=== PATIENT | male | born 1980 | race Caucasian/White ===

== ENCOUNTER 2024-04-10 18:02 | Observation (INO) ==
--- NOTE | 2024-04-10 18:13 | Emergency Department Note ---
Impression & Plan Anaphylaxis, Urticaria ED Provider Note Provider: Young Ewing MD DATE OF SERVICE: 04/10/2024 CHIEF COMPLAINT: Allergic reaction HISTORY OF PRESENT ILLNESS: Patient is a 43-year-old gentleman approximately an hour prior to arrival stung once he believes by a bee. Used an Adalberto epinephrine autoinjector as well as 50 mg of Benadryl EMS activated. Received 0.3 mg IM epinephrine for EMS was 105 mg of Solu-Medrol and DuoNeb. Contact manage the patient was still having significant hive reaction and blood pressures in the 90s systolic but not tachycardic. Still significantly wheezy by report. Given additional IV fluid, small mount of IV Benadryl, and a second 0.3 IM dose of epinephrine and route. Upon arrival patient with extensive rash with stating improved pruritus. States he is breathing bit better but had some discomfort and pressure to the lower chest with reaction that is moderated. He is feeling better compared to previous. Got stung on the back area with something he thinks it might of been a bee but is unsure. Has been stung before without issues. No known allergic reactions. Denies other known exposures. Denies significant chest pain right now or difficulty breathing. States his girlfriend who he is visiting her family in town for has more of his medications but states he does have some medical history. Does report blood pressure issues in the past. Is visiting from [place]. He is finishing a DuoNeb upon arrival. PAST MEDICAL HISTORY: As noted above MEDICATIONS: Reviewed with patient and girlfriend. Includes baby aspirin, lisinopril, metoprolol, Jardiance, metformin, as well as vitamins SOCIAL HISTORY: Medical marijuana usage, non-smoker of tobacco PHYSICAL EXAM: GENERAL: alert and oriented in no acute distress on stretcher, tolerating his secretions Head: normocephalic and atraumatic with some blotchy rash and hives across the face. EYES: No injection, discharge or icterus. EOMI. NECK: Trachea midline. Supple. ENT: Mucous membranes pink and moist. Pharynx without erythema or exudate. No lingual swelling appreciable or significant tongue elevation. LUNGS: Airway patent. No retractions. Breath sounds clear with good air entry bilaterally. No stridor, no increased work of breathing HEART: Regular rate and rhythm. No chest wall tenderness ABDOMEN: Soft and non-tender, without guarding or rebound. SKIN: Acyanotic, warm, dry, with extensive [place] area/hives mild pruritus greater on the back and trunk than extremities EXTREMITIES: Without swelling, tenderness or deformity NEUROLOGICAL: No focal deficits. No aphasia. No facial droop or slurred speech. Normal strength and tone in the extremities. Sensation to gross touch normal. Ambulatory. EK bpm normal sinus rhythm. No PVC or PAC. No acute ST segment elevation or depression with a QTc of 428. CONTINUOUS CARDIAC MONITORING: was ordered and showed a heart rate of 70s to 80s bpm in normal sinus rhythm Patient's laboratory studies and imaging reviewed. Differential includes Allergic reaction, anaphylaxis, urticaria, Stoner-Olayinka syndrome, toxic epidermal necrolysis, erythema multiforme, contact dermatitis, cellulitis, as well as other pathologies. IMPRESSION/MEDICAL DECISION MAKING: Fairly severe anaphylaxis allergic reaction event received Adalberto epinephrine dose as well as 2 IM 0.3 mg epinephrine doses. Received Benadryl and Solu- Medrol as well as DuoNeb prior to arrival. Finished a liter of fluid here. Is having improvement upon arrival still fairly significant hives/acute care area. Not tachycardic or hypotensive here. Will monitor for any rebound but has required multiple doses of epinephrine already for the severity of his reaction. Seems like an insect or bee sting reaction but cannot confirm for sure. Basic blood work, EKG, tryptase, and troponin were ordered. EKG without significant findings and denies significant acute chest pain. Given some Pepcid here. Chest x-ray per radiology report and EKG reassuring here. Patient's rash does appear to improve and the patient does appear hemodynamically stable here. Not having crushing chest pain or tearing sensation I do not believe this represents aortic dissection or PE. Blood work here without anemia or leukocytosis. Tryptase sent for reference value will return today. Electrolytes, LFTs, troponin level are are reassuring. Patient's rash is improving and he is eager to have something to eat or drink. Still has here care and hives present but I do not believe he is very level indicative of the need for additional epinephrine at this time. Given that he received multiple doses for severe allergic reaction and still having some lingering symptoms discussed with him and his girlfriend staying for further observation. DIAGNOSIS: Anaphylaxis DISPOSITION: Hospitalist will evaluate Patient was agreeable with this plan. Past Med/Surg History Problem List (Updated 04/10/24 @ 21:51 by Karime Beasley DO) Urticaria (Acute) Anaphylaxis (Acute) Medical History (Updated 04/10/24 @ 21:51 by Karime Beasley DO) Hyperlipidemia Hypertension Diabetes Surgical History (Updated 04/10/24 @ 21:52 by Karime Beasley DO) History of nasal surgery Family History (Updated 04/10/24 @ 21:52 by Karime Beasley DO) Father Aortic dissection Social History Smoking Status: Never smoker Feels Safe at Home: Yes Allergies Allergies Allergy/AdvReac Type Severity Reaction Status Date / Time No Known Allergies Allergy Unverified 04/10/24 19:12 Home Meds Home Medications Medication Instructions Recorded Confirmed aspirin 81 mg tablet,delayed 81 mg PO DAILY 04/10/24 04/10/24 release cholecalciferol (vitamin D3) 50 50 mcg PO DAILY 04/10/24 04/10/24 mcg (2,000 unit) tablet (Vitamin D3) coQ10 (ubiquinol) 100 mg capsule 100 mg PO DAILY 04/10/24 04/10/24 dextroamphetamine-amphetamine 30 30 mg PO DAILY 04/10/24 04/10/24 mg tablet (Adderall) empagliflozin 25 mg tablet 25 mg PO DAILY 04/10/24 04/10/24 (Jardiance) lisinopril 10 mg tablet 10 mg PO DAILY 04/10/24 04/10/24 metformin 500 mg tablet,extended 500 mg PO DAILY 04/10/24 04/10/24 release 24 hr metoprolol succinate 50 mg 50 mg PO DAILY 04/10/24 04/10/24 tablet,extended release 24 hr omega 5-wvr-[id number]-fish oil 1,200 mg 1 cap PO DAILY 04/10/24 04/10/24 (144 mg-216 mg) capsule (Fish Oil) rosuvastatin 20 mg tablet 20 mg PO DAILY 04/10/24 04/10/24 Results & Data (ED) Vital Signs Vital Signs - 24 hr 04/10/24 18:05 04/10/24 18:05 04/10/24 18:15 Temperature 36.9 C Temperature Source Oral Pulse Rate 70 66 69 Pulse Rate from SpO2 Sensor Respiratory Rate 20 16 Respiratory Effort / Characteristics Non-Labored Spontaneous Respiratory Depth Normal Respiratory Pattern Regular Blood Pressure 135/82 131/90 Blood Pressure Mean 99 110 Blood Pressure Position Sitting Pulse Oximetry 100 99 Oxygen Delivery Method Room Air Room Air Sepsis Recent Fever Within 48 Hours No Sepsis New/Unexplained Change in Mental Status N/A Sepsis Action Taken by Nursing No Action Required 04/10/24 18:23 04/10/24 18:30 04/10/24 20:01 Temperature Temperature Source Pulse Rate 80 Pulse Rate from SpO2 Sensor Respiratory Rate 16 Respiratory Effort / Characteristics Respiratory Depth Respiratory Pattern Blood Pressure 144/94 H 135/97 Blood Pressure Mean 107 108 Blood Pressure Position Pulse Oximetry 100 98 Oxygen Delivery Method Room Air Room Air Sepsis Recent Fever Within 48 Hours Sepsis New/Unexplained Change in Mental Status Sepsis Action Taken by Nursing 04/10/24 20:06 Temperature Temperature Source Pulse Rate 75 Pulse Rate from SpO2 Sensor 74 Respiratory Rate 24 Respiratory Effort / Characteristics Respiratory Depth Respiratory Pattern Blood Pressure Blood Pressure Mean Blood Pressure Position Pulse Oximetry 98 Oxygen Delivery Method Room Air Sepsis Recent Fever Within 48 Hours Sepsis New/Unexplained Change in Mental Status Sepsis Action Taken by Nursing Laboratory Data 04/10/24 18:10 04/10/24 19:27 Lab Results 04/10/24 04/10/24 Range/Units 18:10 19:27 WBC 7.26 (4.8-10.8) K/ul RBC 4.73 (4.70-6.10) M/uL Hgb 14.5 (14.0-18.0) g/dl Hct 43.8 (42.0-52.0) % MCV 92.6 (80.0-100.0) fL MCH 30.7 (25.0-34.0) pg MCHC 33.1 (32.0-36.0) g/dL RDW Std Deviation 46.8 H (36.4-46.3) fL RDW Coeff of Mindy 13.7 (11.5-14.5) % Plt Count 198 (130-400) K/uL MPV 10.1 (9.4-12.4) fL Immature Gran % (Auto) 0.3 % Neut % (Auto) 50.8 % Lymph % (Auto) 35.5 % [place] % (Auto) 10.9 % Eos % (Auto) 1.9 % Baso % (Auto) 0.6 % Neut # (Auto) 3.69 (1.40-6.50) K/uL Lymph # (Auto) 2.58 (1.20-3.40) K/uL [place] # (Auto) 0.79 H (0.11-0.59) K/uL Eos # (Auto) 0.14 (0.00-0.50) K/uL Baso # (Auto) 0.04 (0.00-0.20) K/uL Immature Gran # (Auto) 0.02 (0.01-0.20) K/uL Sodium 138 (136-145) mmol/L Potassium TNP 4.4 Chloride 104 (98-107) mmol/L Carbon Dioxide 22 (21-32) mmol/L Anion Gap 12 H (3-11) BUN 15 (6-23) mg/dl Creatinine 0.84 (0.6-1.4) mg/dl Est Cr Clr Drug Dosing 121.9 ml/min Est GFR ( Amer) 122.6 ml/min Est GFR (Non-Af Amer) 105.7 ml/min BUN/Creatinine Ratio 17.9 (10-20) Glucose 177 H (70-99(Fasting)) mg/dl Calcium 9.8 (8.6-10.3) mg/dl Total Bilirubin 0.5 (0.2-1.0) mg/dl AST TNP 21 ALT 32 (7-52) U/L Alkaline Phosphatase 59 (34-104) U/L Troponin I High Sens 2.4 (0-20) pg/ml Total Protein 7.9 (6.0-8.3) gm/dl Albumin 4.8 (3.4-5.0) gm/dl Globulin 3.1 (2.5-4.0) gm/dl Albumin/Globulin Ratio 1.5 (0.9-2) Administered Medications Diphenhydramine HCl (Diphenhydramine Capsule 25 Mg Cap) 25 mg PO TID AISHA Stop: 05/10/24 22:33 Last Admin: 04/10/24 23:16 Dose: 25 mg Documented By: MNM Discontinued Medications Sodium Chloride (Nss) 1,000 mls @ 999 mls/hr IV .Q1H1M AISHA Stop: 04/10/24 19:15 Last Infusion: 04/10/24 20:18 Dose: Infused Documented By: Admin: 04/10/24 18:16 Dose: 999 mls/hr Documented By: ELIZA Famotidine (Pepcid 20mg Iv Push) 20 mg in 5 mls @ 2.5 mls/min IV NOW STA Stop: 04/10/24 18:06 Last Admin: 04/10/24 18:16 Dose: 2.5 mls/min Documented By: ELIZA Imaging Data Radiologist's Impression: Chest X-Ray 04/10/24 18:05 SINGLE VIEW CHEST CLINICAL HISTORY: Allergic reaction. FINDINGS: An AP, portable, upright chest radiograph is obtained. No prior studies are available for comparison at the time of dictation. The cardiomediastinal silhouette is unremarkable. There is mild elevation of the right hemidiaphragm. The lungs and pleural spaces are clear. No pneumothorax is seen. The bony thorax is grossly intact. IMPRESSION: No active disease in the chest. ACT 112: Negative or not required by law. Electronically signed by: Guillermo Lyle M.D. 04/10/2024 6:20 PM Discharge Plan Visit Data Chief Complaint: Allergic Reaction Stated Complaint: ALLERGIC REACTION - BEE STING ED Provider: Young Ewing Discharge Problem: Anaphylaxis, Urticaria Patient Disposition: Being Evaluated by Hospitalist Discharge Instructions Interventions: ED Discharge Assessment Last Done: 04/10/24 22:20 Discharge Problem: Anaphylaxis Qualifiers: Encounter type: initial encounter Qualified Code(s): T78.2XXA - Anaphylactic shock, unspecified, initial encounter
[2024-04-10] MEDS: SODIUM CHLORIDE 0.9% 1,000 ML IV SCH (18:16)
[2024-04-10] MEDS: FAMOTIDINE 20MG IV PUSH 20 MG/5 ML SYR IV STA (18:16)
--- NOTE | 2024-04-10 18:22 | XRay Report ---
SINGLE VIEW CHEST CLINICAL HISTORY: Allergic reaction. FINDINGS: An AP, portable, upright chest radiograph is obtained. No prior studies are available for c omparison at the time of dictation. The cardiomediastinal silhouette is unremarkable. There is mild e levation of the right hemidiaphragm. The lungs and pleural spaces are clear. No pneumothorax is seen. The bony thorax is grossly intact. IMPRESSION: No active disease in the chest. ACT 112: Negative or not required by law. Electronically signed by: Guillermo Lyle M.D. 04/10/2024 6:20 PM
[2024-04-10] MEDS ORDERED: ALBUT/IPRATROP 3MG/0.5MG NEB 3 ML VIAL ONE (18:24)
[2024-04-10] MEDS ORDERED: EPINEPHrine INJ 1 MG/ML AMP ONE (18:24)
[2024-04-10] MEDS ORDERED: ONDANSETRON INJ 2 MG/ML 2 ML VIAL ONE (18:24)
[2024-04-10] MEDS ORDERED: diphenhydrAMINE 50 MG/ML VIAL ONE (18:24)
[2024-04-10] MEDS ORDERED: methylPREDNISolone 125 MG/2 ML VIAL ONE (18:24)
[2024-04-10 18:34] LABS: Basophils # (auto) 0.04 K/uL (0.00-0.20); Basophils % (auto) 0.6 %; Eosinophils # (auto) 0.14 K/uL (0.00-0.50); Eosinophils % (auto) 1.9 %; Hematocrit (blood only) 43.8 % (42.0-52.0); Hemoglobin 14.5 g/dl (14.0-18.0); Immature Granulocytes # (auto) 0.02 K/uL (0.01-0.20); Immature Granulocytes % (auto) 0.3 %; Lymphocytes # (auto) 2.58 K/uL (1.20-3.40); Lymphocytes % (auto) 35.5 %; Mean Corpuscular Hemoglobin 30.7 pg (25.0-34.0); Mean Corpuscular Hgb Conc 33.1 g/dL (32.0-36.0); Mean Corpuscular Volume 92.6 fL (80.0-100.0); Mean Platelet Volume 10.1 fL (9.4-12.4); Monocytes # (auto) 0.79 K/uL (0.11-0.59); Monocytes % (auto) 10.9 %; Neutrophils # (auto) 3.69 K/uL (1.40-6.50); Neutrophils % (auto) 50.8 %; Platelet Count 198 K/uL (130-400); RDW Coefficient of Variation 13.7 % (11.5-14.5); RDW Standard Deviation 46.8 fL (36.4-46.3); Red Blood Count 4.73 M/uL (4.70-6.10); White Blood Count 7.26 K/ul (4.8-10.8)
[2024-04-10 18:57] LABS: Alanine Aminotransferase 32 U/L (7-52); Albumin Globulin Ratio 1.5 (0.9-2); Albumin Level 4.8 gm/dl (3.4-5.0); Alkaline Phosphatase 59 U/L (34-104); Anion Gap 12 (3-11); BUN Creatinine Ratio 17.9 (10-20); Bilirubin,Total 0.5 mg/dl (0.2-1.0); Blood Urea Nitrogen 15 mg/dl (6-23); Calcium 9.8 mg/dl (8.6-10.3); Carbon Dioxide 22 mmol/L (21-32); Chloride 104 mmol/L (98-107); Creatinine Clr Calc Pharmacy 121.9 ml/min; Est GFR (African American) 122.6 ml/min; Est GFR (Non-African American) 105.7 ml/min; Globulin 3.1 gm/dl (2.5-4.0); Glucose 177 mg/dl (70-99(Fasting)); Sodium 138 mmol/L (136-145); Total Protein 7.9 gm/dl (6.0-8.3)
[2024-04-10 18:59] LABS: Troponin I High Sensitivity 2.4 pg/ml (0-20)
[2024-04-10 19:57] LABS: Potassium 4.4 mmol/L (3.5-5.1)
--- NOTE | 2024-04-10 20:06 | History & Physical Report ---
Date of Service April 10, 2024 Assessment & Plan (1) Anaphylaxis: Plan: 43yo male with anaphylactic reaction likely secondary to bee/wasp sting. Patient with no prior history of allergy to bees or anaphylaxis. Patient was stung on the foot approximately 1 week ago and again today - timing of stings possibly contributing to reaction. He received an Adalberto epi-pen in the field as well as Benadryl 50mg then given Epi 0.3mg x 2 doses and Solumedrol by EMS. Presently feels that symptoms are improving. Rash is still present and tongue/mouth still feels slightly full. Exam with no wheezing or stridor. Blood pressure is acceptable -Admit to PCU -Epinephrine PRN worsening allergic symptoms -Prednisone 40mg po daily -Pepcid 20mg PO BID -Benadryl 25mg po TID -Patient should be given a prescription for an epi-pen upon discharge -Patient should followup with an [facility] upon discharge Plan CHRONIC MEDICAL PROBLEMS: Hypertension: Blood pressure stable, presently 135/97 -Continue Metoprolol 50mg po daily -Continue Lisinopril 10mg po daily Hyperlipidemia: Chronic. Stable -Rosuvastatin 20mg po daily Diabetes: Blood sugar = 177 currently. Patient is on Metformin and Jardiance. -Continue Jardiance -Hold Metformin -ISS, goal blood sugar 110 - 140 History of Present Illness Chief Complaint: Allergic reaction Primary Care Provider: ROBIN DAVIES Omar Orantes is a 43yo male with history of DM, HTN and HLP presenting from home with anaphylaxis reaction following a possible bee sting. Patient with no known allergy to bee stings. No prior history of anaphylaxis. He did get stung presumably by a bee approximately 1 week ago on the plantar surface of his left foot while he was walking around in the yard barefoot. He had some pain from the sting but did not develop any systemic symptoms or worsening allergic symptoms. This evening around 16:00 he was at a family reunion preparing to set off fireworks when a bee or wasp got into his shirt and stung him on the back of the right shoulder. Approximately 20 minutes later he developed a large, itchy hive at the sting site followed by a diffuse, urticarial rash involving face, trunk, arms and legs. He also felt that his tongue and throat were swelling as well as shortness of breath and chest tightness. Patient was given an Adalberto EpiPen and 50mg of PO Benadryl prior to EMS arrival. Systolic BP per EMS 90mmHg EMS administered 0.3mg of epinephrine x 2 doses as well as Solumedrol 125mg Upon arrival to the ER patient reporting that his symptoms were somewhat improved. He still had some feeling of fullness in his tongue and throat as well as some mild shortness of breath. Rash still present but improving. ER Course: NSS x 1L Pepcid 20mg IV Allergies Allergy/AdvReac Type Severity Reaction Status Date / Time No Known Allergies Allergy Unverified 04/10/24 19:12 Home Medications Medication Instructions Recorded Confirmed Type aspirin 81 mg tablet,delayed 81 mg PO DAILY 04/10/24 04/10/24 History release cholecalciferol (vitamin D3) 50 50 mcg PO DAILY 04/10/24 04/10/24 History mcg (2,000 unit) tablet (Vitamin D3) coQ10 (ubiquinol) 100 mg capsule 100 mg PO DAILY 04/10/24 04/10/24 History dextroamphetamine-amphetamine 30 30 mg PO DAILY 04/10/24 04/10/24 History mg tablet (Adderall) empagliflozin 25 mg tablet 25 mg PO DAILY 04/10/24 04/10/24 History (Jardiance) lisinopril 10 mg tablet 10 mg PO DAILY 04/10/24 04/10/24 History metformin 500 mg tablet,extended 500 mg PO DAILY 04/10/24 04/10/24 History release 24 hr metoprolol succinate 50 mg 50 mg PO DAILY 04/10/24 04/10/24 History tablet,extended release 24 hr omega 6-wgp-mqf-fish oil 1,200 mg 1 cap PO DAILY 04/10/24 04/10/24 History (144 mg-216 mg) capsule (Fish Oil) rosuvastatin 20 mg tablet 20 mg PO DAILY 04/10/24 04/10/24 History Past Med/Surg History Problem List (Updated 04/10/24 @ 21:51 by Karime Beaslye DO) Urticaria (Acute) Anaphylaxis (Acute) Medical History (Updated 04/10/24 @ 21:51 by Karime Beasley DO) Hyperlipidemia Hypertension Diabetes Surgical History (Updated 04/10/24 @ 21:52 by Karime Beasley DO) History of nasal surgery Family History (Updated 04/10/24 @ 21:52 by Karime Beasley DO) Father Aortic dissection Social History Smoking Status: Never smoker Feels Safe at Home: Yes Review of Systems Review of Systems: All systems reviewed & are unremarkable except as noted in HPI & below Physical Exam Physical Exam: General: patient resting comfortably, NAD, non-toxic in appearance, AA&O x 4 Skin: diffuse urticarial rash noted on trunk, arms and face. Rash on legs largely resolved HEENT: NC/AT, PERRL, EOMI, anicteric sclera, conjunctiva without injection, external ear normal to inspection and nontender, nares patent, moist mucus membranes, dentition intact, no oropharyngeal lesions, neck supple, trachea midline, no LAD, no thyromegaly, no JVD Mild swelling to left side of tongue and soft palate Heart: +S1/S2, regular, no m/r/g Lungs: equal air entry bilaterally, no rales/rhonchi/wheezes Abd: +BS, soft, NT/ND, no masses/organomegaly/ascites Ext: warm, 2+ pulses in UE/LE bilaterally, no clubbing/cyanosis or edema Neuro: nonfocal, patient AA&O x 4, speech intact, no facial droop, moving all extremities on command with equal strength 5/5 Results & Data Results & Data Vital Signs (Past 12 Hours) Vital Signs Temp Pulse Resp BP Pulse Ox O2 Del Method 04/10/24 18:30 80 16 144/94 H 98 Room Air 04/10/24 18:23 100 Room Air 04/10/24 18:15 69 16 131/90 99 Room Air 04/10/24 18:05 66 04/10/24 18:05 36.9 C 70 20 135/82 100 Room Air Laboratory Results Laboratory Results WBC 7.26 K/ul (4.8-10.8) 04/10/24 18:10 RBC 4.73 M/uL (4.70-6.10) 04/10/24 18:10 Hgb 14.5 g/dl (14.0-18.0) 04/10/24 18:10 Hct 43.8 % (42.0-52.0) 04/10/24 18:10 MCV 92.6 fL (80.0-100.0) 04/10/24 18:10 MCH 30.7 pg (25.0-34.0) 04/10/24 18:10 MCHC 33.1 g/dL (32.0-36.0) 04/10/24 18:10 RDW Std Deviation 46.8 fL (36.4-46.3) H 04/10/24 18:10 RDW Coeff of Mindy 13.7 % (11.5-14.5) 04/10/24 18:10 Plt Count 198 K/uL (130-400) 04/10/24 18:10 MPV 10.1 fL (9.4-12.4) 04/10/24 18:10 Immature Gran % (Auto) 0.3 % 04/10/24 18:10 Neut % (Auto) 50.8 % 04/10/24 18:10 Lymph % (Auto) 35.5 % 04/10/24 18:10 [place] % (Auto) 10.9 % 04/10/24 18:10 Eos % (Auto) 1.9 % 04/10/24 18:10 Baso % (Auto) 0.6 % 04/10/24 18:10 Neut # (Auto) 3.69 K/uL (1.40-6.50) 04/10/24 18:10 Lymph # (Auto) 2.58 K/uL (1.20-3.40) 04/10/24 18:10 [place] # (Auto) 0.79 K/uL (0.11-0.59) H 04/10/24 18:10 Eos # (Auto) 0.14 K/uL (0.00-0.50) 04/10/24 18:10 Baso # (Auto) 0.04 K/uL (0.00-0.20) 04/10/24 18:10 Immature Gran # (Auto) 0.02 K/uL (0.01-0.20) 04/10/24 18:10 Sodium 138 mmol/L (136-145) 04/10/24 18:10 Potassium 4.4 mmol/L (3.5-5.1) 04/10/24 19:27 Chloride 104 mmol/L (98-107) 04/10/24 18:10 Carbon Dioxide 22 mmol/L (21-32) 04/10/24 18:10 Anion Gap 12 (3-11) H 04/10/24 18:10 BUN 15 mg/dl (6-23) 04/10/24 18:10 Creatinine 0.84 mg/dl (0.6-1.4) 04/10/24 18:10 Est Cr Clr Drug Dosing 121.9 ml/min 04/10/24 18:10 Est GFR ( Amer) 122.6 ml/min 04/10/24 18:10 Est GFR (Non-Af Amer) 105.7 ml/min 04/10/24 18:10 BUN/Creatinine Ratio 17.9 (10-20) 04/10/24 18:10 Glucose 177 mg/dl (70-99(Fasting)) H 04/10/24 18:10 Calcium 9.8 mg/dl (8.6-10.3) 04/10/24 18:10 Total Bilirubin 0.5 mg/dl (0.2-1.0) 04/10/24 18:10 AST 21 U/L (13-39) 04/10/24 19:27 ALT 32 U/L (7-52) 04/10/24 18:10 Alkaline Phosphatase 59 U/L (34-104) 04/10/24 18:10 Troponin I High Sens 2.4 pg/ml (0-20) 04/10/24 18:10 Total Protein 7.9 gm/dl (6.0-8.3) 04/10/24 18:10 Albumin 4.8 gm/dl (3.4-5.0) 04/10/24 18:10 Globulin 3.1 gm/dl (2.5-4.0) 04/10/24 18:10 Albumin/Globulin Ratio 1.5 (0.9-2) 04/10/24 18:10 Impressions Chest X-Ray 04/10/24 18:05 SINGLE VIEW CHEST CLINICAL HISTORY: Allergic reaction. FINDINGS: An AP, portable, upright chest radiograph is obtained. No prior studies are available for comparison at the time of dictation. The cardiomediastinal silhouette is unremarkable. There is mild elevation of the right hemidiaphragm. The lungs and pleural spaces are clear. No pneumothorax is seen. The bony thorax is grossly intact. IMPRESSION: No active disease in the chest. ACT 112: Negative or not required by law. Electronically signed by: Guillermo Lyle M.D. 04/10/2024 6:20 PM PG Care Time/CCT Total # of Minutes Spent Total Time Spent with Patient: Total time spent is greater than 50% in coordination of care (as documented) at patient's floor/unit and/or counseling patient: Coding Level of Care Code 35165 INT INP/OBS CARE 3/75MIN Diagnoses Anaphylaxis T78.2XXA Encounter type: initial encounter (1) Anaphylaxis Encounter type: initial encounter Qualified Code(s): T78.2XXA - Anaphylactic shock, unspecified, initial encounter
[2024-04-10] MEDS ORDERED: CARBOHYDRATES FOR HYPOGLYCEMIA PO PRN (22:34)
[2024-04-10] MEDS ORDERED: EPINEPHrine INJ 1 MG/ML AMP IM PRN (22:34)
[2024-04-10] MEDS ORDERED: DEXTROSE 50% 50 ML SYRINGE IV PRN (22:34)
[2024-04-10] MEDS ORDERED: GLUCAGON FOR INJ 1 MG VIAL SQ PRN (22:34)
[2024-04-10] MEDS ORDERED: GLUCOSE 40% GEL 15 GM TUBE PO PRN (22:34)
[2024-04-10] MEDS ORDERED: ACETAMINOPHEN 325 MG TAB PO PRN (22:34)
[2024-04-10] MEDS ORDERED: ONDANSETRON INJ 2 MG/ML 2 ML VIAL IV PRN (22:34)
[2024-04-10] MEDS ORDERED: GLUCOSE 10 TAB/TUBE PO PRN (22:34)
[2024-04-10] MEDS: diphenhydrAMINE Capsule 25 MG CAP PO SCH (23:16)
[2024-04-10] MEDS: INSULIN ASPART PER UNIT CHARGE SC SCH (23:16)
[2024-04-10] MEDS: FAMOTIDINE 20 MG TAB PO SCH (23:33)
[2024-04-11] MEDS: diphenhydrAMINE Capsule 25 MG CAP PO ONE (05:51)
[2024-04-11] MEDS: lisinopril 10 MG TAB PO SCH (08:13)
[2024-04-11] MEDS: METOPROLOL SUCC 50MG EXT REL TAB PO SCH (08:14)
[2024-04-11] MEDS: ROSUVASTATIN CALCIUM 20 MG TAB PO SCH (08:14)
[2024-04-11] MEDS: predniSONE 20 MG TAB PO SCH (08:15)
[2024-04-11] MEDS: ASPIRIN 81 MG ECTAB PO SCH (08:15)
[2024-04-11] MEDS: DEXTROAMPHETAMINE/AMPHETAMINE IR 10 MG TAB PO SCH (08:18)
[2024-04-11 09:27] LABS: Basophils # (auto) 0.02 K/uL (0.00-0.20); Basophils % (auto) 0.2 %; Hematocrit (blood only) 40.5 % (42.0-52.0); Hemoglobin 13.4 g/dl (14.0-18.0); Immature Granulocytes # (auto) 0.04 K/uL (0.01-0.20); Immature Granulocytes % (auto) 0.4 %; Lymphocytes # (auto) 1.21 K/uL (1.20-3.40); Lymphocytes % (auto) 11.4 %; Mean Corpuscular Hemoglobin 30.5 pg (25.0-34.0); Mean Corpuscular Hgb Conc 33.1 g/dL (32.0-36.0); Mean Corpuscular Volume 92.3 fL (80.0-100.0); Mean Platelet Volume 10.3 fL (9.4-12.4); Monocytes # (auto) 0.57 K/uL (0.11-0.59); Monocytes % (auto) 5.3 %; Neutrophils # (auto) 8.82 K/uL (1.40-6.50); Neutrophils % (auto) 82.7 %; Platelet Count 194 K/uL (130-400); RDW Coefficient of Variation 13.9 % (11.5-14.5); RDW Standard Deviation 47.6 fL (36.4-46.3); Red Blood Count 4.39 M/uL (4.70-6.10); White Blood Count 10.66 K/ul (4.8-10.8)
[2024-04-11 09:41] LABS: Albumin Globulin Ratio 1.5 (0.9-2); Albumin Level 4.6 gm/dl (3.4-5.0); Bilirubin,Total 0.6 mg/dl (0.2-1.0); Calcium 9.7 mg/dl (8.6-10.3); Creatinine Clr Calc Pharmacy 126.4 ml/min; Est GFR (African American) 124.4 ml/min; Est GFR (Non-African American) 107.3 ml/min; Potassium 4.4 mmol/L (3.5-5.1); Total Protein 7.6 gm/dl (6.0-8.3)
--- NOTE | 2024-04-11 11:47 | Electrocardiogram Report ---
Test Reason : Blood Pressure : / mmHG Vent. Rate : 065 BPM Atrial Rate : 065 BPM P-R Int : 142 ms QRS Dur : 086 ms QT Int : 412 ms P-R-T Axes : 026 -04 -02 degrees QTc Int : 428 ms Normal sinus rhythm Normal ECG No previous ECGs available Confirmed by Raul Lima ([id number]) on 04/11/2024 11:47:36 AM Referred By: REFERRED SELF Confirmed By:Raul Lima
--- NOTE | 2024-04-11 13:43 | Discharge Summary ---
Date of Service April 11, 2024 Admission HPI Per Admitting Provider Omar Orantes is a 43yo male with history of DM, HTN and HLP presenting from home with anaphylaxis reaction following a possible bee sting. Patient with no known allergy to bee stings. No prior history of anaphylaxis. He did get stung presumably by a bee approximately 1 week ago on the plantar surface of his left foot while he was walking around in the yard barefoot. He had some pain from the sting but did not develop any systemic symptoms or worsening allergic symptoms. This evening around 16:00 he was at a family reunion preparing to set off fireworks when a bee or wasp got into his shirt and stung him on the back of the right shoulder. Approximately 20 minutes later he developed a large, itchy hive at the sting site followed by a diffuse, urticarial rash involving face, trunk, arms and legs. He also felt that his tongue and throat were swelling as well as shortness of breath and chest tightness. Patient was given an Adalberto EpiPen and 50mg of PO Benadryl prior to EMS arrival. Systolic BP per EMS 90mmHg EMS administered 0.3mg of epinephrine x 2 doses as well as Solumedrol 125mg Upon arrival to the ER patient reporting that his symptoms were somewhat improved. He still had some feeling of fullness in his tongue and throat as well as some mild shortness of breath. Rash still present but improving. ER Course: NSS x 1L Pepcid 20mg IV Admission Exam Per Admitting Provider General: patient resting comfortably, NAD, non-toxic in appearance, AA&O x 4 Skin: diffuse urticarial rash noted on trunk, arms and face. Rash on legs largely resolved HEENT: NC/AT, PERRL, EOMI, anicteric sclera, conjunctiva without injection, external ear normal to inspection and nontender, nares patent, moist mucus membranes, dentition intact, no oropharyngeal lesions, neck supple, trachea midline, no LAD, no thyromegaly, no JVD Mild swelling to left side of tongue and soft palate Heart: +S1/S2, regular, no m/r/g Lungs: equal air entry bilaterally, no rales/rhonchi/wheezes Abd: +BS, soft, NT/ND, no masses/organomegaly/ascites Ext: warm, 2+ pulses in UE/LE bilaterally, no clubbing/cyanosis or edema Neuro: nonfocal, patient AA&O x 4, speech intact, no facial droop, moving all extremities on command with equal strength 5/5 Principal Diagnosis Anaphylaxis Discharge Exam General: NAD, non-toxic in appearance, AOx3 HEENT: NCAT, no facial swelling, tongue and palate normal Heart: RRR< no m/r/g Lungs: CTAB Abd: soft, nt/nd, +BS Skin: Area indicated as bite source indiscernible from freckles covering rest of the body (flat, hyperpigmented, no erythema, no drainage, non-tender, no warmth), rash resolved, no lesions or welts Discharge Data Allergies Allergy/AdvReac Type Severity Reaction Status Date / Time No Known Allergies Allergy Unverified 04/10/24 19:12 Consultations 04/10/24 19:36 ED Decision to Admit Stat Ordered Studies Chest X-Ray 04/10/24 18:05 SINGLE VIEW CHEST CLINICAL HISTORY: Allergic reaction. FINDINGS: An AP, portable, upright chest radiograph is obtained. No prior studies are available for comparison at the time of dictation. The cardiomediastinal silhouette is unremarkable. There is mild elevation of the right hemidiaphragm. The lungs and pleural spaces are clear. No pneumothorax is seen. The bony thorax is grossly intact. IMPRESSION: No active disease in the chest. Electronically signed by: Guillermo Lyle M.D. 04/10/2024 6:20 PM Hospital Course (1) Anaphylaxis: - Pt was stung on R shoulder/mid-back. The area became inflamed, then his whole body broke out in hives, then he began having chest tightness and tongue swelling that caused difficulty breathing. - Pt used Adalberto epi-pen and unspecified OTC sprays/creams on sting before hospital - EMS administered Epi 0.3mg x 2 doses and Solumedrol. Sx resolved quickly thereafter. - Pt discharged w new Epipen rx. PCP aware of hospitalization. Referral made to humidifier operator - Lisinopril was held from home meds due to concern for angioedema on top of reaction to insect venom. BP stable so should not need alternative medication while this is held. Total Time Total Time Spent Total Time Spent (In Minutes): I spent 40 minutes reviewing results and future recommendations with patient and reviewing labs/results and documenting. Discharge Plan Discharge Items Patient Disposition: Home - Self-Care Reason For Visit: ANAPHYLAXIS REACTION Discharge Diagnosis: Anaphylactic reaction to bite Activity: Per Instructions section Non-emergency contact: Primary Care Provider Call non-emergency contact if: your symptoms worsen Follow-up/Referrals: ROBIN DAVIES [Other] Diet: Regular Addtl Attending Provider Instructions: You were seen due to an anaphylactic reaction to a bite. You were treated with epinephrine and Solumedrol. A discharge summary will be sent to your PCP to ensure continuity of care. Please bring this discharge summary with you to your next office appointment so that your provider can review it. Your medication list has been reviewed and reconciled upon discharge to ensure accuracy and continuity of care. An updated list of all your medications is included with your hospital discharge paperwork. Please review this list closely, and make note of any changes. We are ADDING an Epipen (2-pack) for use in any future emergencies. Included in your discharge paperwork is information on using auto-injectors. We are HOLDING your lisinopril due to concern for angioedema in the presence of insect venom. You may take OTC Zyrtec (or generic) for cutaneous symptoms. Please followup with an humidifier operator for further evaluation and medication management. Contact your PCP if your symptoms return. Call 911 or go to the emergency department if you experience any of the following: Sudden, severe shortness of breath or difficulty breathing Sudden, severe abdominal pain or nausea/vomiting Severe chest pain, or chest pain that radiates (moves) to your jaw or arm Thank you for allowing us to participate in your care. Pending Studies at Discharge: Yes Stand-Alone Forms: My [facility] SENSIMED, Smoking Cessation Medications and DC Order Prescriptions: New epinephrine 0.3 mg/0.3 mL auto-injector 0.3 mg IM Q4H PRN (Reason: anaphylaxis) Qty: 2 0RF Continued aspirin 81 mg Tablet,Delayed Release (Dr/Ec) 81 mg PO DAILY omega [id number]-[id number]-gwd-fish oil [Fish Oil] 1,200 (144-216) mg Capsule 1 cap PO DAILY coQ10 (ubiquinol) 100 mg Capsule 100 mg PO DAILY metoprolol succinate 50 mg Tablet Extended Release 24 Hr 50 mg PO DAILY dextroamphetamine-amphetamine [Adderall] 30 mg Tablet 30 mg PO DAILY metformin 500 mg Tablet Extended Release 24 Hr 500 mg PO DAILY rosuvastatin 20 mg Tablet 20 mg PO DAILY cholecalciferol (vitamin D3) [Vitamin D3] 50 mcg (2,000 unit) Tablet 50 mcg PO DAILY Jardiance 25 mg Tablet 25 mg PO DAILY Held lisinopril 10 mg Tablet 10 mg PO DAILY Hold Instructions: Resume on 05/02/24. Hold until appointment with humidifier operator due to concern for adverse effect of angioedema exacerbating issue of allergic reaction/presence of insect venom Discharge Orders: Discharge Order (Routine); Ordered 04/11/24 Ordered By: eJssica Ramirez/Other Patient Handouts: ED Using an Injection Pen Admission Data Admit Date/Time: 04/10/24 20:12 Attending Provider: Natalio Atkins Admit Provider: Karime Beasley Primary Care Provider: ROBIN DAVIES Other Providers: Karime Beasley Other Interventions: Discharge Summary Assessment (RN) Last Done: 04/11/24 14:20 Supervising Physician Co-Signing Physician Notes ATTESTATION I also saw the patient and confirmed roe portions of the history and exam. I agree with the impression and plan in the resident documentation, and as summarized below. Upon our mid afternoon exam, the patient is without complaints. He denies any fullness of his lips or tongue; no difficulty swallowing or breathing. Denies any chest pain or shortness of breath. No prior history of insect allergy. Does have a history of seasonal and environmental/household allergies. He does tell us that when he was a child he had allergy shots. EXAM 124/74, 73, 23, 37.1, 98% on room air Pleasant alert. No acute distress. No edema of the tongue or lips appreciated. Neck is supple Heart regular rate and rhythm Lungs clear throughout, nonlabored respirations, no wheezing DATA Labs CBC unremarkable except for hemoglobin of 13.4. BMP unremarkable except for a elevated glucose of 190. Anaplasma smear was negative. Babesia smear was negative. Lyme screen was negative. Imaging Chest x-ray was normal IMPRESSION & PLAN Anaphylaxis, suspect bee/wasp, First episode EpiPen, use and care of EpiPen explained to patient Daily [id number] antihistamine Outpatient follow-up with humidifier operator; he is already reached out to his PCP via the patient portal to get this arranged (He lives outside of this area). For the time being, recommend he hold his lisinopril 10 mg; given the low dose, do not think he will need any additional antihypertensives added Additional per resident documentation Resident Activity Tracking Resident Involvement: Resident Care Provided Care Provided: Adult Hospital Medicine
== END 2024-04-11 14:25 | disposition home or self-care (01) | DRG 918 ==
LOC: ED 18:02 → SUATTDRO 20:12 → 2E 20:12 → INTOOBSV 20:12 → 2E 22:20